=== PATIENT | male | born 2000 | race Two or more races ===

== ENCOUNTER 2025-03-09 06:00 | Day surgery (SDC) | payer OTHER ==
[2025-03-02 10:38] LABS: BASO % 0.4 % (0.1-1.2); EOS # 0.08 (0.04-0.54); EOS % 1.5 % (0.7-7.0); LYMPH # 1.58 (1.18-3.74); LYMPH % 28.9 % (19.3-53.1); MEAN PLATELET VOLUME 10.90 fl (9.4-12.4); MONO # 0.60 (0.24-0.82); MONO % 11.0 % (4.7-12.5); NEUT # 3.19 (1.56-6.13); NEUT % 58.2 % (34.0-71.1); RED CELL DISTRIBUTION WIDTH 13.4 % (11.6-14.4)
[2025-03-02 10:39] LABS: URINE APPEARANCE Clear; URINE BILIRRUBIN Negative (NEGATIVE); URINE BLOOD Negative; URINE COLOR Yellow; URINE GLUCOSE Negative (NEGATIVE); URINE KETONE Negative (NEGATIVE); URINE LEUKOCYTE Negative; URINE NITRATE Negative; URINE PROTEIN Negative (NEGATIVE); URINE UROBILINOGEN 0.2 E.U./dl
[2025-03-02 10:44] LABS: URINE BACTERIA 40.7 uL (0.0-1933); URINE EPITHELIAL CELLS 1.6 uL (0.0-38.8)
[2025-03-02 10:46] VITALS: BP 97/65
[2025-03-02 10:58] LABS: INR 1.14
[2025-03-02 11:00] LABS: ALT/SGPT 35.0 U/L (12-78); AST/SGOT 20.0 U/L (15-37); BILIRUBIN TOTAL 0.4 mg/dL (0.3-1.2); BUN CREA RATIO 17.0 (7.0-25.0); CREATININE SERUM 0.87 mg/dL (0.70-1.30); GFR 106.92; GLOBULINA 4.4 G/DL (2.4-3.5); GLUCOSE FASTING 92.0 mg/dL (65-100); OSMOLALITY SERUM 287.0 MOSM/KG (275-295)
[2025-03-02 11:06] LABS: URINE CAST 0.00 uL (0.0-1.40); URINE RBC 1.0 uL (0.0-20.8); URINE WBC 0.9 uL (0.0-23.2)
[~2025-03-09] VITALS: Ht 182.9 cm; Wt 72.6 kg
[~2025-03-09 06:00] MED LIST: STELARA90 MG/1 ML
[2025-03-09] MEDS ORDERED: DEXAMETHASONE SODIUM PHOSPHATE 4 MG/ML VIAL ONE (11:13)
[2025-03-09] MEDS ORDERED: EPINEPHRINE HCL/PF 1 MG/ML AMPUL ONE (12:13)
[2025-03-09] MEDS ORDERED: CEFAZOLIN SODIUM 1,000 MG VIAL ONE (12:51)
== END 2025-03-09 16:40 | disposition home or self-care (01) ==
LOC: CIR.AMB 06:00
PROVIDERS: ATTEND Otolaryngology
DX: D11.0 Benign neoplasm of parotid gland (principal); D37.030 Neoplasm of uncertain behavior of the parotid salivary glands